=== PATIENT | female | born 1945 | race Caucasian/White ===

== ENCOUNTER → 2017-05-14 | Outpatient (CLI) | payer MEDICARE, OTHER ==
[~2017-05-14] MED LIST: DOXY100T20 PO; VAL2 PO
--- NOTE | 2017-05-14 21:11 | RADRPT ---
PROCEDURE: XR Left Hip and pelvis. CLINICAL INDICATION: Left hip pain. Pelvic pain. TECHNIQUE: Two views. Frontal pelvis and lateral left hip. COMPARISON: No prior studies are available for comparison. FINDINGS: There is no fracture or dislocation. The soft tissues are normal. There are degenerative changes of both hips with osteophytes noted. There is no significant joint s pace narrowing. There is no lytic or blastic lesion. Surgical clips are present bilaterally in the pelvis. The upper pelvis is not included on the image s. IMPRESSION: 1. Mild degenerative changes of both hips. 2. Prior bilateral pelvic surgery. RPTAT: QQ .Luis Delatorre MD, MD Date Time Electronically viewed and signed by .Luis Delatorre MD, on 05/14/2017 21:10 .R/
--- NOTE | 2017-05-15 07:28 | HKNOTE ---
DATE OF SERVICE: 05/14/2017 MAIN COMPLAINT: Pain in the left hip. HISTORY OF MAIN COMPLAINT: The patient is a 71-year-old female, who complains of pain in the left hip. She had surgery on her lumbar spine in November. After that, she developed pain over the greater trochanter. The pain has been intermittently present for the past month. PRESENT COMPLAINTS: Pain is localized to the left greater trochanter and described as being from mild to mild to moderate. She does not have any rest pain or night pain. She is not taking any medications for the pain. She has a history of left-sided sciatica. Spine surgery November. On a level surface she can walk as far she needs to but, it "hurts once in a while." She limps some of the time. Sporting activities, swelling. PAST ORTHOPEDIC HISTORY: PREVIOUS ORTHOPEDIC OPERATIONS: 11/27/2016 spine surgery at [facility]. She considers the surgery to be very successful. PRIOR CORTISONE INTAKE: By injection. The patient is also on cortisone for "3 years." ALCOHOL INTAKE: She has been an alcoholic. She has not had a drink in 30 years. OTHER JOINT PROBLEMS: None. Blood tests for arthritis, none. Prior injuries to hips and knees, none. WORK STATUS: The patient is currently a student at school. PAST MEDICAL HISTORY: Entirely negative. PAST SURGICAL HISTORY: Shoulder surgery by Dr. Pan. FAMILY HISTORY: Noncontributory. SYSTEMS REVIEW: Entirely negative. HABITS: Patient smokes (? how many) cigarettes a day. She does not drink alcoholic beverages. PHYSICAL EXAMINATION: On physical examination, a remarkably fit looking and youthful 71-year-old female. VITAL SIGNS: Height 5 foot 1. Weight 143 pounds. Blood pressure 130/60, temperature 98.2. The patient walks without a walking aid. Her gait is normal. MUSCULOSKELETAL EXAMINATION: Full range of motion without pain. 4+ tenderness over the left greater trochanter. Knee examination both knees are clinically normal. IMAGING: Plain x-rays of her pelvis and hips obtained today showed 25 percent narrowing of both hip joints. No secondary arthritic changes. DIAGNOSIS: Trochanteric bursitis of the left knee. MANAGEMENT: Under sterile conditions, the patient was given injection of 2 cc of Kenalog and 10 of 2 percent lidocaine into the trochanteric bursa. She will be seen again as necessary for further evaluation and treatment. Dictated By: Deonte Trevino MD /[email or web address]/nuno /Document#: [id number]
== END | disposition home or self-care (01) ==
LOC: HKI 13:46
DX: M70.62 Trochanteric bursitis, left hip (principal)
CPT/HCPCS: 73502

== ENCOUNTER → 2018-01-27 | Outpatient (CLI) | END | disposition home or self-care (01) ==

== ENCOUNTER → 2019-01-12 | Outpatient (CLI) | payer MEDICARE, OTHER ==
--- NOTE | 2019-01-12 11:46 | CONS ---
Assessment/Plan Assessment/Plan Hospital Course (Demo Recall) 73-year-old female presenting with recurrent left greater trochanteric bursitis. Previous steroid injections which has helped her. She has not had targeted physical therapy for a GT process in the past. She is not using NSAIDs. She does have significant history of lumbar spine issues including decompression and fusion. On examination she has a mild Trendelenburg gait as well as 4/5 strength to her hip abductors. Her lower back issues are likely part of the etiology of her greater trochanteric bursitis. At this time am not suspecting an overt tear as she was doing relatively what well until 2 months ago. I explained to the patient that I do not think it be a good idea to have another steroid injection today as this would be her third injection. I would like to trial physical therapy and an NSAID regiment prior to trying a third steroid injection as this is the maximum number of injections I will give to greater trochanteric bursa. If conservative treatment fails I will offer her third and final injection and if that fails she will get an MRI of the hip. Plan: Meloxicam physical therapy Follow-up 3 months Consultation Date/Type/Reason Admit Date/Time Date of Consultation: Jan 12, 2019 Reason for Consultation Left greater trochanteric bursitis Date/Time of Note DATE: 01/12/19 TIME: 11:36 Hx of Present Illness This is a 73-year-old female who presents with a history of left hip pain. Patient states the pain is in the lateral aspect of the hip. She is doing well until 2 months ago. The pain does not radiate to the knee. It is described as sharp at times and as a dull ache. The pain is rated as a 4/10 with activity and 3/10 at rest. She has had 2 previous steroid injections to her left greater trochanteric bursa. The last one in January 2018. She does have history significant for degenerative disc disease of the lumbar spine as well as nerve compression. 2 years ago she had decompression fusion of the lumbar spine. This helped significantly. Walking tolerance is not limited. No external support. The patient does admit to a limp. It is difficult to sleep on the affected side at night secondary to pain. There are symptoms to suggest referred pain from the back without radicular symptoms. Treatment to date has included steroid injections and activity modification. The patient states that treatment to date has not provided adequate relief of symptoms, prompting consultation. Duration: Years. More acutely in the last 2 months Injury: No Walking tolerance: Not limited Limp: Yes Support: No Stairs: Difficult Physical Therapy: Not for GT bursitis Injections: 2 previous steroid injection. Last one in November 2017. NSAID's: No Prior surgery: Lumbar spine decompression fusion Back pain: Yes Knee pain: No Risk of AVN : No Patient denies fever, chills, shortness of breath, chest pain, nausea/vomiting, constipation, diarrhea, numbness, and tingling. Past Medical History Patient denies past medical history. Home Meds Reported Medications Diazepam* (Valium*) 2 Mg Tab, 2 MG PO DAILY PRN for ANXIETY, TAB 10/28/14 Doxycycline Hyclate* (Doxycycline Hyclate*) 100 Mg Tablet.dr, 100 MG PO BID, TAB 10/28/14 Allergies: Coded Allergies: codeine (Verified Allergy, Mild, shaking, nausea, 10/28/14) ITCHING ,NAUSEA Zolpidem (Unverified Allergy, Unknown, SWELLING OF TONGUE, 10/28/14) Past Surgical History Bilateral total shoulder replacements Lumbar spine decompression fusion Family History Significant Family History: no pertinent family hx Social History Alcohol Use: none Smoking Status: Current some day smoker (Marijuana) Drug Use: marijuana Exam/Review of Systems Exam Vitals Weight: 140 pounds Height: 5 foot 1 inch Temperature: 90.0 Heart Rate: 74 Blood Pressure: 130/62 Respiratory Rate: 12 Exam General: Alert, oriented. Vital signs: Noted on the chart. Heart: Regular rate and rhythm. Lungs: No respiratory distress. No accessory muscle use. Musculoskeletal: Well developed female in no apparent distress. Gait demonstrates a mild Trendelenburg with antalgic components and no short leg component. Standing, the pelvis is oblique and supine there is no true leg length discrepancy. There is tenderness over trochanteric bursa and IT band. Negative Obers Test Range of motion: Flexion: 120 Extension: 0 Internal rotation: 20 External rotation: 45 Abduction: 45 Adduction: 10 Sitting there is no pelvic obliquity. Minimal to no pain at the extremes of motion of the affected hip. Skin was intact throughout both lower extremities. Sensation intact to light touch in a sural, saphenous, deep peroneal, s uperficial peroneal, medial and lateral plantar nerve distribution. Neurovascular exam showed 4/5 strength to hip abductors and 5/5 strength in the quads, EHL/tibialis anterior/gastroc. Normal and symmetrical pulses were palpated in both the dorsalis pedis and posterior tibial arteries. There is no sign of venous stasis. Imaging Imaging The patient received a full set of films and personally reviewed by myself today in clinic including an AP pelvis and an AP and lateral of the affected hip. The hip is reduced. There is no significant loss of joint space. Mild degeneration of the hip joint. Lumbar spine partially visualized on x-rays demonstrating status post fusion. There is no significant deformity of the the proximal femur, femoral neck, or acetabulum. The pelvis is in continuity. Bone quality radiographically: OSCAR Pineda MD Jan 12, 2019 11:46
--- NOTE | 2019-01-12 20:46 | RADRPT ---
PROCEDURE: XR left Hip. CLINICAL INDICATION: Left hip pain TECHNIQUE: AP and frog lateral views of the left hip with an AP pelvis COMPARISON: 05/14/2017 FINDINGS: There is no acute fracture or dislocation. There is mild joint space narrowing and osseous spurring w ithin both hips. The soft tissues around both hips are unremarkable. The pubic symphysis is intact with joint space narrowing and osseous spurring. The sacroiliac joints are intact with joint space narrowing and osseous spurring. Postsurgical change s of anterior/posterior fusion are noted at L5-S1. There are surgical clips within the pelvis bilaterally. RPTAT: ZZ IMPRESSION: 1. No acute bony abnormality. 2. Mild osteoarthrosis of both hips. .Kyra Garcia MD, Date Time Electronically viewed and signed by .Kyra Garcia MD, on 01/12/2019 20:46 .T/
== END | disposition home or self-care (01) ==
LOC: HKI 10:48
PROVIDERS: ATTEND Orthopaedic Surgery Adult Reconstructive Orthopaedic Surgery
DX: M70.62 Trochanteric bursitis, left hip (principal); Z96.612 Presence of left artificial shoulder joint; Z96.611 Presence of right artificial shoulder joint; Z98.1 Arthrodesis status
CPT/HCPCS: 73502; G0463